=== PATIENT | female | born 1965 | race Caucasian/White ===

== ENCOUNTER → 2018-01-07 10:29 | Outpatient (CLI) | payer OTHER, SELFPAY ==
[2018-01-07 12:11] LABS: Add Manual Diff / Slide Review NO; Basophils Percent Auto 0.3 % (0-2); Hematocrit 40.9 % (36-46); Hemoglobin 13.8 g/dL (12.0-16.0); Lymphocytes Percent Auto 29.4 % (25-40); Mean Corpuscular HGB Conc 33.7 % (30-36); Monocytes Percent Auto 7.7 % (3-14); Neutrophils Absolute Auto 3300 /uL (3000-5900); Neutrophils Percent Auto 61.6 % (50-75); Platelet Count 219 X10^3/uL (150-400); Red Blood Cell Count 4.75 X10^6/uL (4.0-5.2); Red Cell Distribution Width 13.3 % (11.6-14.8); White Blood Cell Count 5.3 X10^3/uL (4.5-11.0)
[2018-01-07 12:19] LABS: Carbon Dioxide 24 mmol/L (22-32); Chloride 104 mmol/L (98-107); HEMOLYSIS < 15 (0-50); Potassium 4.1 mmol/L (3.4-5.1); Sodium 143 mmol/L (137-145)
== END ==
PROVIDERS: PCP Family Medicine; Visit Provider Orthopaedic Surgery
DX: Z01.812 Encounter for preprocedural laboratory examination (principal); M16.12 Unilateral primary osteoarthritis, left hip; Z01.818 Encounter for other preprocedural examination
CPT/HCPCS: 36415; 80051; 85025; 93005; 93010

== ENCOUNTER 2018-01-30 06:17 | Inpatient (IN) | payer OTHER, SELFPAY ==
[2018-01-16 09:55] VITALS: BMI 29.7
[2018-01-30] VITALS (11 sets, daily range): BP systolic 86–121; BP diastolic 49–82; PULSE 60–115; RESP 11–17; TEMP 36.3–36.9; O2SAT 95–100; BMI 29.9
--- NOTE | 2018-01-30 06:00 | DI.RAD.S_ITS ---
PROCEDURE: XR PELVIS 1-2V INDICATIONS: postop TECHNIQUE: 1 view of the lower pelvis acquired. COMPARISON: None. FINDINGS: Bones: Patient is status post left hip arthroplasty, with hardware components in expected positions. The hip joint appears congruent. The visualized bony structures appear intact. Soft tissues: Overlying postoperative changes are noted. No suspicious soft tissue densities. IMPRESSION: Normal postoperative examination. Dictated by: Phi Otoole M.D. on 01/30/2018 at 9:44 Approved by: Phi Otoole M.D. on 01/30/2018 at 9:45
[2018-01-30] MEDS: LACTATED RINGERS 1,000 ML 42 ML IV (07:05)
[2018-01-30] MEDS: PREGABALIN 75 MG CAPSULE PO (07:06)
[2018-01-30] MEDS: ACETAMINOPHEN 325 MG TABLET 975 MG PO (07:06)
[2018-01-30] MEDS: CELECOXIB 200 MG CAPSULE PO (07:06)
--- NOTE | 2018-01-30 08:05 | SUR.PREOP ---
Spoke with Dr. Hdz regarding pt adverse reaction to amoxicillin in relation to current order for ancef. Per Dr. Hdz, ok to continue with current plan for ancef. Communicated this with circulating RN.
--- NOTE | 2018-01-30 08:13 | PM.PREOP ---
Pre-operative Note Interval Note Pre-op Check: Yes History & Physical Reviewed by Physician Changes: No
[2018-01-30] MEDS: CEFAZOLIN 1 GM VIAL IV (08:15)
[2018-01-30] MEDS: TRANEXAMIC ACID 1,000 MG VIAL 1000 MG INJ ×2 (08:27→09:40)
--- NOTE | 2018-01-30 08:40 | SUR.OPER ---
Lateral on padded OR bed. Gel axillary roll. Arms secured on padded armboard with pillow supporting top arm. Padded hip positioner braces x4 - anterior and posterior chest and pelvis. Additional gel pad used anterior pelvis. Gel pad under bottom leg from knee to foot and secured with tape over sheet.
[2018-01-30] MEDS: BUPIVACAINE 0.25% W/ EPI VIAL 50 ML INJ (08:50)
--- NOTE | 2018-01-30 10:17 | PM.OP.1 ---
Operative Date/Time/Diagnoses Date of procedure: 01/30/18 Time of procedure: 10:17 Procedure & Clinicians Procedure: Left total hip arthroplasty (CPT code 79908 with special education educational assistant) Indications: Patient is an 52-year-old female with severe left hip DJD. The patient has pain with activities and at rest, limited ambulation and activity tolerance, difficulties with ADLs, and failure of conservative treatment. We have discussed the nature of condition, treatment options, risks and benefits, and patient elects to proceed with total hip arthroplasty and gives informed consent. Surgeon: Sharad Hdz Knuckle Bender: Elvira Moss Anesthesia Type: General and Spinal Operative Notes Closure Type: primary Specimen(s): none sent Implants & Drains: Acetabulum: Velázquez and Nephew R3 acetabular component size 50 mm Femoral component: Velázquez [employer] Nephew Synergy stem size 11 with high offset Femoral head: 32 mm + 0 Oxinium Estimated Blood Loss (mL): 100 Blood products transfused: none Procedure in detail: After satisfaction induction of anesthetic, and administration of IV antibiotics, the patient was positioned in the lateral decubitus position with all bony prominences well padded and pelvic position secured using a hip tax professional positioning device. Left hip and lower extremity prepped and draped in the usual sterile fashion, 1st dose of intravenous tranexamic acid was administered, then a longitudinal incision was created centered over the greater trochanter and carried sharply through the skin and subcutaneous tissues down to the fascia brandi which was divided longitudinally and retracted with a Charnley retractor. External rotators visualize, cut, tagged, and retracted posteriorly, then the capsule was cut in a T-type fashion with the corners tagged and retracted. Hip was dislocated and femoral neck cut made according to preoperative templating. Acetabular retractors then placed, and the acetabular labrum and osteophytes were excised. The acetabulum was then sequentially reamed to 49 mm with an excellent circumferential ream and fit with the trial. The trial component was removed and a permanent size 50 mm Velázquez and Nephew R3 acetabular component was selected, positioned, and impacted with satisfactory position and fixation achieved. Permanent liner was then inserted with the elevated lip directed posteriorly. Soft tissue then removed off the lateral femoral neck in the lateral neck was entered using a box osteotome. T-handled reamers placed down the canal followed by sequential broaching to 11 with the final broach left in place for trial reduction which demonstrated good leg length, range of motion, and stability characteristics with a 32 mm +0 trial ball. Another trial reduction was performed with a high offset neck trial with marked improvement and stability, so the trial and broach were removed, and a permanent size 11 high offset Velázquez [employer] Nephew Synergy stem was selected and inserted with excellent position and fixation achieved. Another trial reduction yielded the above characteristics so the trial ball was exchanged for a permanent 32 mm +0 Oxinium ball. The hip was irrigated and reduced and excellent leg length range of motion and stability characteristics were achieved and maintained. The hip was copiously irrigated, and the capsule repaired with #2 Ethibond, and the piriformis was repaired back to the greater trochanter with the same. Fascia brandi closed with interrupted #1 Ethibond sutures, and the subcutaneous tissues were closed in 2 layers of 0 Vicryl and 2 0 Vicryl. Skin was closed with hue and sterile dressings applied. Second dose of tranexamic acid was administered intravenously, and the anesthetic was terminated. Complications: none Condition: stable Disposition: PACU Plan for aftercare: Patient will be admitted to the acute care van, and anticipate discharge on postop day 1 or 2 with follow-up in office in 10-14 days. Outpatient physical therapy will be arranged and patient will continue to observe posterior hip precautions. Patient will continue use of postoperative Lovenox for 10 days postop.
--- NOTE | 2018-01-30 10:21 | P.OP_ITS ---
Operative Date/Time/Diagnoses Date of procedure: 01/30/18 Time of procedure: 10:17 Procedure & Clinicians Procedure: Left total hip arthroplasty (CPT code 61528 with timber management assistant) Indications: Patient is an 52-year-old female with severe left hip DJD. The patient has pain with activities and at rest, limited ambulation and activity tolerance, difficulties with ADLs, and failure of conservative treatment. We have discussed the nature of condition, treatment options, risks and benefits, and patient elects to proceed with total hip arthroplasty and gives informed consent. Surgeon: Sharad Hdz Party Plan Selling Distributor: Elvira Moss Anesthesia Type: General and Spinal Operative Notes Closure Type: primary Specimen(s): none sent Implants & Drains: Acetabulum: Velázquez [employer] Nephew R3 acetabular component size 50 mm Femoral component: Velázquez [employer] Nephew Synergy stem size 11 with high offset Femoral head: 32 mm + 0 Oxinium Estimated Blood Loss (mL): 100 Blood products transfused: none Procedure in detail: After satisfaction induction of anesthetic, and administration of IV antibiotics, the patient was positioned in the lateral decubitus position with all bony prominences well padded and pelvic position secured using a hip flange machine operator positioning device. Left hip and lower extremity prepped and draped in the usual sterile fashion, 1st dose of intravenous tranexamic acid was administered, then a longitudinal incision was created centered over the greater trochanter and carried sharply through the skin and subcutaneous tissues down to the fascia brandi which was divided longitudinally and retracted with a Charnley retractor. External rotators visualize, cut, tagged, and retracted posteriorly, then the capsule was cut in a T-type fashion with the corners tagged and retracted. Hip was dislocated and femoral neck cut made according to preoperative templating. Acetabular retractors then placed, and the acetabular labrum and osteophytes were excised. The acetabulum was then sequentially reamed to 49 mm with an excellent circumferential ream and fit with the trial. The trial component was removed and a permanent size 50 mm Velázquez and Nephew R3 acetabular component was selected, positioned, and impacted with satisfactory position and fixation achieved. Permanent liner was then inserted with the elevated lip directed posteriorly. Soft tissue then removed off the lateral femoral neck in the lateral neck was entered using a box osteotome. T-handled reamers placed down the canal followed by sequential broaching to 11 with the final broach left in place for trial reduction which demonstrated good leg length, range of motion, and stability characteristics with a 32 mm +0 trial ball. Another trial reduction was performed with a high offset neck trial with marked improvement and stability, so the trial and broach were removed, and a permanent size 11 high offset Velázquez and Nephew Synergy stem was selected and inserted with excellent position and fixation achieved. Another trial reduction yielded the above characteristics so the trial ball was exchanged for a permanent 32 mm +0 Oxinium ball. The hip was irrigated and reduced and excellent leg length range of motion and stability characteristics were achieved and maintained. The hip was copiously irrigated , and the capsule repaired with #2 Ethibond, and the piriformis was repaired back to the greater trochanter with the same. Fascia brandi closed with interrupted #1 Ethibond sutures, and the subcutaneous tissues were closed in 2 layers of 0 Vicryl and 2 0 Vicryl. Skin was closed with hue and sterile dressings applied. Second dose of tranexamic acid was administered intravenously , and the anesthetic was terminated. Complications: none Condition: stable Disposition: PACU Plan for aftercare: Patient will be admitted to the acute care van, and anticipate discharge on postop day 1 or 2 with follow-up in office in 10-14 days. Outpatient physical therapy will be arranged and patient will continue to observe posterior hip precautions. Patient will continue use of postoperative Lovenox for 10 days postop.
--- NOTE | 2018-01-30 10:44 | SUR.PHASEI ---
pt transfered up to room 224 on room air and left in stable condition under the care of lindsay.
--- NOTE | 2018-01-30 13:51 | CM.DANOTE ---
Patient is a 52 year old female who was admitted on 01/30/18 today for Left Total Hip. Pt has PRE DIM for insurance and her PCP is Dr. Morales. EMR was reviewed. Per Surgeon, pt tolerated procedure well and ordered PT eval. SW met bedside with pt shortly after arriving on the floor from surgery and explained role and pt confirmed that she lives in [place] with her and 17 year old daughter and is typically Independent at baseline. Pt drives and denies any hx of HH or SNF. Pt confirms that she has outpt PT set up with [place] set up for Tuesday and preference is home with family and friend support. Pt's spouse has the week off from work to provide assist. Plan: SW to follow for PT/OT eval and recommendations to confirm pt will be safe for d/c home with family and outpt PT set up in [place]. SUBHA Webb Discharge Planning/Care Management CM Discharge Assessment Start: 01/30/18 13:49 Freq: Status: Active Protocol: Document 01/30/18 13:49 BF (Rec: 01/30/18 13:51 [id number]) Discharge Planning Assessment Assigned State Archivist SUBHA Mtz Advance Directives? No Advance Directives on File No History Provided By Patient Medical Record Has Patient been admitted in last 30 No days? Prior Living Arrangements House Household Members spouse children Comment Patient lives at home with spouse and 17 year old Dtr in [place]. Type of transporation used prior to Drives own vehicle admit Independent with ADL's Yes Is patient alert and oriented? Yes Caregiver for Another Yes: 17 year old Dtr Community Services used prior to Physical Therapy admission: Comment Plan is home, waiting for PT/ OT eval and recommendations Barriers to Discharge No Discharge Plan Home Community Services Physical Therapy Transportation Arrangement Spouse taking the week off and can provide transport at d/c. Whiteboard Updated in Patient Room with Yes name and ext. # of State Archivist Review Status In Process Please Provide Date Initial DC 01/30/18 Assessment Was Performed Next Review Type Continued Stay Review Pre-Anesthesia Assessment Start: 01/16/18 09:55 Freq: Status: Active Protocol: Document 01/16/18 09:55 CAB (Rec: 01/16/18 10:38 CAB [id number]) Pre-Anesthesia Assessment Patient Also Known As (KESHA Butler Patient Information Reviewed Via Phone Assessment Assessment Completed With Patient Primary Care Provider Swati Morales Seen Specialist in Last 12 Months Yes Specialist Seen Hide Or Skin Buffer Orthopedist Primary Language Polish Overhead Worker Required No Height 155.58 cm Weight 72.121 kg Body Mass Index (BMI) 29.7 Hearing Ability Normal Visual Assist Glasses Dentition Type Teeth, Natural Present Barriers to Learning None Hx Anesthesia Reactions Yes: Vomiting w/GA after wisdom teeth Hx Family Anesthesia Reaction No Hx Malignant Hyperthermia No Hx Blood Transfusions No Anesthesia Review Requested No Social Security Benefits Interviewer No alcohol intake current alcohol intake frequency a few times a week Smoking Status Never smoker Substance Use Type does not use Pain Present Pain Reported Musculoskeletal Symptoms Abnormal Gait Difficulty Walking Joint Pain History of Falling (Recent or History of No ) Patient is completely paralyzed or No completely immobile Mental Status Oriented to own ability Comment Walking sticks with prolonged walking/hiking Is patient on oxygen? No Does patient have ANDREWS/SOB No Hx Sleep Apnea No Suspected Sleep Apnea No Currently Taking a Beta Mauricio No Can You Climb a Flight of Stairs Without Yes SOB Hx Chest Pain No Hx SOB No Hx Syncope or Dizziness No Anti-Coagulant Therapy No Has a Space And Missile Operations Spacelift No Cardiac Testing No Hx Pacemaker/ICD No Pacemaker Rep Required? No Cardiac Clearance Received Not Applicable Diet Type At Home Regular dysphagia No Bladder Pattern Incontinent, Stress Urinary Catheter Present No Hx Urinary Self Catheterization No Diabetes No Patient No Lactating No Hx Drug Resistant Organism No Presence of External or Internal Medical No Devices Have you traveled outside the [facility] States in the last 30 days? Marital Status Lives With spouse children Prior Living Arrangements House Number of Floors (Floors) 3 or More Floors Number of Stairs To Enter/Railing? 5 stairs, railing present Support System Child/Children Spouse Does the Patient Have Assistance After Yes Surgery Patient Discharge Plan Description Return Home Comment Pt advised 1 night length of stay per surgeon's office Feels Safe in Current Environment Yes Been Physically Hurt or Threatened By a No Person in Current Environment Do you have thoughts of harming yourself None or others? Are you currently considering suicide? No Do you have a plan to hurt yourself or No Plan others? Do You Have Any Spiritual Beliefs That No May Affect Your HC Choices? Do You Have Any Cultural Practices That No May Affect Your HC Choices? Spiritual Referral In-House Head Kiln Operator Comment Amrik Who Can We Speak to About Patient's Care Family, friends Identifying Code for Release of Patient Declines to issue Information Health Care Proxy/Next of Kin Noel () Health Care Proxy Emergency Contact Name Noel () Emergency Contact Advance Directives? No: Has paperwork at home Advance Directives on File No Requested Patient Bring Advanced Yes Directives DOS Power of Creel Hand No PAC Instructions Durable medical equipment Medications to take/avoid Nasal antibiotic No ETOH/petroleum product on skin DOS NPO Post-op transportation Pre-surgical wash Sturdy shoes/comfortable clothes Do not bring valuables and remove jewelry
[2018-01-30] MEDS: LACTATED RINGERS 1,000 ML 125 ML IV ×2 (14:11→23:39)
[2018-01-30] MEDS: ONDANSETRON 4 MG ODT PO (14:13)
--- NOTE | 2018-01-30 15:12 | PT.IIE ---
Addendum entered and electronically signed by Kaylyn Byrd, PT 01/31/18 08:49: I certify I directly supervised and guided this session. R Rupal Byrd DPSharron Original Note: Current Diagnoses Unilateral primary osteoarthritis, left hip (01/30/18) Surgery Performed Operation Date: 01/30/18 07:45 Actual Procedures p Total Hip Arthroplasty(Left) - Sharad Hdz MD Surgical History (Last Updated 01/16/18 @ 10:19 by Marlena Ibarra RN) Hx of left breast biopsy (Acute ~2003) Hx of oral surgery (Acute) Medical History (Last Updated 01/16/18 @ 10:19 by Marlena Ibarra RN) Eczema (Acute) HTN in , chronic (Acute) Mild depression (Acute ~2003) Mild intermittent asthma (Acute) Osteoarthritis (Acute) Physical Therapy Inpatient Evaluation/Re-Eval M1 PT/OT-IP Prior Functional Status Start: 01/30/18 16:22 Freq: NEEDED Status: Active Protocol: Document 01/30/18 15:12 (Rec: 01/30/18 16:40 [id number]) Medical Review Prior Functional Status Medical History Reviewed Yes Communication No deficits noted Mobility and Gait Pt previously ambulating mod I she uses trekking poles for hiking or occasionally longer distances, for example [employer] shopping. All other mobilties are stated as independent using no AD including driving and self care. Social History Household Members spouse children Living Arrangements House Number of Floors (Floors) Two Floors Number of Stairs To Enter/Railing? 5 to enter, L rail. She is set up to live on the first floor post-op until beginning OP PT. avaliable to assist 24/7 for the next wk. Home Environment Standard Height Toilet Walk in Shower Home Equipment Front Wheel Walker Shower Seat without Backrest Hand Held Shower Employment Status Commuter Pilot Employed Additional Social History Comment Pt scheduled to return to work on March 20, 2018. Pt also owns a Brenner bed ( can transition to standing). M2 PT-IP Current Condition Start: 01/30/18 16:22 Freq: NEEDED Status: Active Protocol: Document 01/30/18 15:12 (Rec: 01/30/18 16:40 [id number]) Physical Therapy Current Condition Current Condition Evaluation Date 01/30/18 Treatment Diagnosis L MINNIE; difficulty walking Onset Date 01/30/2018 Precautions Posterior Hip Precautions No Hip Flexion > 90 degrees No Hip Internal Rotation No Hip Adduction Weight Bearing Status Weight Bearing Status Weight Bear as Tolerated M3 PT-IP Subjective Start: 01/30/18 16:22 Freq: NEEDED Status: Active Protocol: Document 01/30/18 15:12 (Rec: 01/30/18 16:40 [id number]) Subjective Physical Therapy Visit Type Type Initial Evaluation Visit Start Time 03:12 Visit Stop Time 03:50 Total Visit Minutes 38 Number of JOB HONER Visits 0 Physical Therapy Visit Comments Patient Comments Pt agreeable to mobilize with PT Patient Goals planning to d/c home with 04/10 assist. Therapy Pain Assessment Pain When Pain Assessed During Mobility Pain Present Pain Present Denied Pain M4 PT-IP Mobility and Gait Start: 01/30/18 16:22 Freq: NEEDED Status: Active Protocol: Document 01/30/18 15:12 (Rec: 01/30/18 16:40 [id number]) PT-Bed Mobility Assessment Supine to Sit Supine to Sit Standby Assistance Sit to Supine Sit to Supine Minimal Assistance Scooting Scooting to Edge of Bed Standby Assistance PT-Transfer Assessment Sit to and From Stand Sit to and from Stand Moderate Assistance 1 Person Assistance Use of Upper Extremities Equipment Transfer Assistive Device Gait Belt Front Wheeled Walker Transfers Transfer Destination Chair Transfer Technique Stand Step Pivot Transfer Ability Level of Assist Moderate Assistance 1 Person Assistance Use of Upper Extremities Comments Mobility Comments BP 74/38 supine resting. Waited 5 mins. pt cued to breath BP 129/62 HR 78. O2 sat 98% on room air. Supine < > sitting pt is SBA with min cues. Seated BP 135/96 HR 111 . Pt instructed to rest with cues for deep breathing. Pt ( +) for emesis in sitting. 5 mins. resting in seated pt stating feeling better and wanting to continue. BP 108/ 74 HR 100. Sit <> stand with fww is mod Ax1 for steadying with min cues. Standing BP 121/82 HR 79. Pt transfers to recliner with fww and mod A for steadying pt, bloking LLE and mod cues. BP 101/73 HR 79 . Nursing notified of pt emesis and BP readings. Pt left with nursing. PT-Balance Assessment Sitting Balance and Reactions Static Sitting Balance Ability Good Dynamic Sitting Balance Ability Good Standing Balance and Reactions Static Standing Balance Ability Fair Dynamic Standing Balance Ability Poor Device Used fww M5 PT-IP Objective Assessments Start: 01/30/18 16:22 Freq: NEEDED Status: Active Protocol: Document 01/30/18 15:12 (Rec: 01/30/18 16:40 [id number]) Orientation Orientation/Cognition Level of Alertness Alert Orientation Name Age Birthday Month Date Year Day of Week Place Situation Language Function Ability No Deficits Noted Safety Awareness Decreased Safety Awareness Memory Description No Deficits Noted Gross Range of Motion Lower Extremity ROM Assessment Left Impaired Impairments limited per precuations. Not formally tested. Strength Lower Extremity Strength Assessment Left Impaired Hip 3 Knee 3 Ankle 5 Comments Strength Comments LLE WNL Sensation Assessment Sensation Light Touch Impaired Sensation Description Heaviness Comments Sensation Comments Light touch impaired over L thigh and L knee. Intact over L foot dorsum and plantar surface M6 PT-IP Treatment Start: 01/30/18 16:22 Freq: NEEDED Status: Active Protocol: Document 01/30/18 15:12 (Rec: 01/30/18 16:40 [id number]) Physical Therapy Treatment Exercises Exercises Ankle Pumps Gluteal Sets Quad Sets Heel Slides Education Education Provided Precautions Weight Bearing Status Post-Op Packet Safety M7 PT-IP Assessment and Plan Start: 01/30/18 16:22 Freq: NEEDED Status: Active Protocol: Document 01/30/18 15:12 (Rec: 01/30/18 16:40 [id number]) PT Summary Assessment and Plan Potential Rehabilitation Potential Good Status of Condition at Evaluation Evolving Summary Impairments ROM Strength Balance Coordination Cognition Bed Mobility Transfers Gait Activity Tolerance Assessment Summary Pt s/p L MINNIE with difficulty walking. Patient was able to transfer with fww and modAx1 using [id number]. She was (+) for emesis and low blood pressures. At this time the pt is not safe to d/c home due to significantly impaired mobility. Pt mobilities are likely to improve and I anticipate safe d/c to home with 04/10 assist and OP PT. Goals Bed Mobility Goal Independent Transfer Goal Standby Assistance Front Wheeled Walker Gait Goal Standby Assistance Front Wheel Walker Gait Distance 150 Other Goals up/down 5 steps L rail CGA Frequency of Treatment Frequency Of Treatment Twice a Day Treatment Plan Physical Therapy Treatment Plan Bed Mobility Training Transfer Training Gait Training Therapeutic Exercise Balance Retraining Post Op Education Discharge Planning Hot or Cold Pack Neuromuscular Re-ed Coordination Retraining Manual Therapy Other Recommendations and Next Treatment Progress ambulation and stair Focus climbing as appropriate. Recommendations To Nursing Amount of Assist Needed 2 Person Assist Discharge Recommendations PT Discharge Recommendations Home with 24/ Assist Outpatient PT
[2018-01-30] MEDS: METOCLOPRAMIDE 10 MG/2 ML INJ IV (15:50)
[2018-01-30] MEDS: CEFAZOLIN 2 GM/100 ML FROZ.PIGGY IV ×2 (15:55→23:39)
[2018-01-30] MEDS: LORazepam 2 MG/ML SYRINGE 0.5 MG IV (17:56)
[2018-01-30] MEDS: ONDANSETRON 4 MG/2 ML INJ IV (21:47)
--- NOTE | 2018-01-30 23:24 | PC.NURSE ---
01/30 2324; pt alert and oriented, vss on ra while awake, desaturates while asleep, placed on 2L NC. CMS intact to operative leg. Since beginning of shift pt has had about 8 episodes of emesis, denies presence of nausea, vomitting occurs very spontaneously sometimes after sips of water other times with movement. Multiple PRNs administered with minimal effect. Pt unable to empty bladder, up two times with encouragement and voided some (hat did not capture) post void residuals around 250ml both times. At this point urinary catheter not warranted. Clear liquids only this shift due to GI disturbances.
[2018-01-31] VITALS: O2SAT 98
[2018-01-31 00:02] VITALS: BP 121/74; PULSE 94; RESP 16; TEMP 36.6; O2SAT 99
[2018-01-31] MEDS: ACETAMINOPHEN 325 MG TABLET 975 MG PO ×3 (00:02→14:40)
[2018-01-31 06:02] LABS: Hematocrit 30.7 % (36-46); Hemoglobin 10.2 g/dL (12.0-16.0)
[2018-01-31] MEDS: IBUPROFEN 400 MG TABLET PO (06:12)
[2018-01-31 06:34] VITALS: BP 119/87; PULSE 85; RESP 16; TEMP 36.6; O2SAT 99
[2018-01-31 07:00] VITALS: BP 95/60; PULSE 79; RESP 18; TEMP 36.9; O2SAT 97
[2018-01-31 08:06] VITALS: O2SAT 98; O2SAT 99
--- NOTE | 2018-01-31 09:00 | PM.DS.1 ---
History of Present Illness Date Patient Seen: 01/31/18 Time Patient Seen: 09:00 Chief complaint: total hip replacement left [id number] Narrative: Patient's pain is been 1 of 3. Patient did have some nausea vomiting yesterday evening and last night. She states the nausea has improved and was able to have some breakfast. She has only been taking ibuprofen and Tylenol as needed for pain. She has gotten up to use the bathroom a couple times with assistance. She does have family at home to assist her. Patient would like to go home today if safe to do so. Discharge Providers Date of admission: 01/30/18 06:17 Primary care physician: Swati Morales MD Consults: 01/30/18 10:52 Consult to Discharge Planning Routine Comment: Consult to Physical Therapy Evaluate & Treat Comment: Physician Instructions: post op MINNIE protocol Consult to Respiratory Therapy Evaluate & Treat Comment: Physician Instructions: Evaluate and treat 01/30/18 14:01 Consult to Pastoral Services Routine Comment: per pt request Discharge provider: Chino Heredia PA-C Discharge Date: 01/31/18 Summary Discharge Diagnosis: Status post left total hip arthroplasty Hospital Course: 52-year-old female who failed treatment as outpatient for severe left hip DJD. Patient admitted to the hospital and consented for left total hip arthroplasty. Patient taken to the operating room underwent left total hip arthroplasty. Anesthesia was general and spinal. Estimated blood loss 100 cc. Patient back in her room recovering well and is in stable condition. Status at Discharge Functional status at discharge: uses cane/walker Overall status at discharge: patient is progressing back to baseline Time Spent with Patient Less than 30 minutes Exam Vital Signs (past 8 hours): - 01/31/18 06:34 01/31/18 07:00 01/31/18 08:06 Temperature 97.8 F 98.4 F Pulse Rate 85 79 Respiratory Rate 16 18 Blood Pressure 119/87 95/60 Pulse Oximetry 99 97 98 Oxygen Delivery Method Room Air Oxygen Flow Rate 1 Narrative Exam Narrative: 52-year-old female resting comfortably in bed in no apparent distress. Left hip dressing is clean, dry and intact. Neurovascular status is intact to the distal left lower extremity. Objective Labs Result Diagrams: 01/31/18 05:39 Labs: Laboratory Results - last 24 hr 01/31/18 05:39 Hgb 10.2 L Hct 30.7 L Discharge Plan Discharge Plan Patient Disposition: Home Discharge comment: DC home today after PT Discharge Med Rec/Prescriptions Prescriptions: New enoxaparin [Lovenox] 40 mg/0.4 mL Syringe 40 mg subcut DAILY Qty: 9 RF: 0 ondansetron 8 mg tablet,disintegrating 4 mg PO Q4HR PRN (Reason: Nausea) Qty: 30 RF: 1 oxycodone 5 mg tablet 5 mg PO Q4-6H PRN (Reason: pain) Qty: 30 RF: 0 Continue fluocinonide 0.05 % Ointment 1 applic TOPICAL BID PRN (Reason: eczema) RF: 0 desonide 0.05 % Ointment 1 applic TOPICAL BID PRN (Reason: eczema) RF: 0 clobetasol 0.05 % Ointment 1 applic TOPICAL BID PRN (Reason: eczema) RF: 0 albuterol sulfate 90 mcg/actuation Hfa Aerosol Inhaler 2 puff INHALATION Q4-6H PRN (Reason: Asthma) RF: 0 fluticasone [Flovent HFA] 110 mcg/actuation Hfa Aerosol Inhaler 2 puff INHALATION BID PRN (Reason: Asthma) RF: 0 fexofenadine [Almita Allergy] 180 mg Tablet 180 mg PO DAILY RF: 0 omega 1-bqe-ksg-fish oil [Fish Oil] 1,000 mg (120 mg-180 mg) Capsule 1 tab PO DAILY RF: 0 Discontinued ibuprofen 200 mg Tablet 400 mg PO DAILY PRN (Reason: pain) RF: 0 Follow up/Referrals: Swati Morales MD [Primary Care Provider] - Sharad Hdz MD [Physician] - 1 Week Provider Discharge Instructions Diet: Diet as Tolerated Activity: Weightbearing as tolerated, posterior hip precautions Cold/Heat Therapy: Ice to affected hip as needed Other treatments: Tylenol 1000 mg 3 times daily, Mobic 1 tab daily, Lovenox 1 injection daily and then start 81 mg aspirin twice daily after completing course of Lovenox, oxycodone half tablet-1 tablet Q 4-6 hours as needed for pain, Vistaril as needed muscle spasms and pain, Zofran 8 mg PO every 8 hours as needed nausea Chino Heredia PA-C [phone] Skin/Wound/Dressing Care Report to your healthcare provider any signs of infection, such as:: chills, fever, increased pain and unusual drainage Visit Report/Discharge Packet Visit Report Forms: Stroke Signs & Symptoms Discharge Data Primary Care Provider: Swati Morales Attending Provider: Sharad Hdz Admit Date/Time: 01/30/18 06:17 Quality VTE Deep Vein Thrombosis/Pulmonary Embolism Present on Admission: No
--- NOTE | 2018-01-31 09:03 | P.DS_ITS ---
History of Present Illness Date Patient Seen: 01/31/18 Time Patient Seen: 09:00 Chief complaint: total hip replacement left [id number] Narrative: Patient's pain is been 1 of 3. Patient did have some nausea vomiting yesterday evening and last night. She states the nausea has improved and was able to have some breakfast. She has only been taking ibuprofen and Tylenol as needed for pain. She has gotten up to use the bathroom a couple times with assistance. She does have family at home to assist her. Patient would like to go home today if safe to do so. Discharge Providers Date of admission: 01/30/18 06:17 Primary care physician: Swati Morales MD Consults: 01/30/18 10:52 Consult to Discharge Planning Routine Comment: Consult to Physical Therapy Evaluate & Treat Comment: Physician Instructions: post op MINNIE protocol Consult to Respiratory Therapy Evaluate & Treat Comment: Physician Instructions: Evaluate and treat 01/30/18 14:01 Consult to Pastoral Services Routine Comment: per pt request Discharge provider: Chino Heredia PA-C Discharge Date: 01/31/18 Summary Discharge Diagnosis: Status post left total hip arthroplasty Hospital Course: 52-year-old female who failed treatment as outpatient for severe left hip DJD. Patient admitted to the hospital and consented for left total hip arthroplasty. Patient taken to the operating room underwent left total hip arthroplasty. Anesthesia was general and spinal. Estimated blood loss 100 cc. Patient back in her room recovering well and is in stable condition. Status at Discharge Functional status at discharge: uses cane/walker Overall status at discharge: patient is progressing back to baseline Time Spent with Patient Less than 30 minutes Exam Vital Signs (past 8 hours): - 01/31/18 06:34 01/31/18 07:00 01/31/18 08:06 Temperature 97.8 F 98.4 F Pulse Rate 85 79 Respiratory Rate 16 18 Blood Pressure 119/87 95/60 Pulse Oximetry 99 97 98 Oxygen Delivery Method Room Air Oxygen Flow Rate 1 Narrative Exam Narrative: 52-year-old female resting comfortably in bed in no apparent distress. Left hip dressing is clean, dry and intact. Neurovascular status is intact to the distal left lower extremity. Objective Labs Result Diagrams: 01/31/18 05:39 Labs: Laboratory Results - last 24 hr 01/31/18 05:39 Hgb 10.2 L Hct 30.7 L Discharge Plan Discharge Plan Patient Disposition: Home Discharge comment: DC home today after PT Discharge Med Rec/Prescriptions Prescriptions: New enoxaparin [Lovenox] 40 mg/0.4 mL Syringe 40 mg subcut DAILY Qty: 9 RF: 0 ondansetron 8 mg tablet,disintegrating 4 mg PO Q4HR PRN (Reason: Nausea) Qty: 30 RF: 1 oxycodone 5 mg tablet 5 mg PO Q4-6H PRN (Reason: pain) Qty: 30 RF: 0 Continue fluocinonide 0.05 % Ointment 1 applic TOPICAL BID PRN (Reason: eczema) RF: 0 desonide 0.05 % Ointment 1 applic TOPICAL BID PRN (Reason: eczema) RF: 0 clobetasol 0.05 % Ointment 1 applic TOPICAL BID PRN (Reason: eczema) RF: 0 albuterol sulfate 90 mcg/actuation Hfa Aerosol Inhaler 2 puff INHALATION Q4-6H PRN (Reason: Asthma) RF: 0 fluticasone [Flovent HFA] 110 mcg/actuation Hfa Aerosol Inhaler 2 puff INHALATION BID PRN (Reason: Asthma) RF: 0 fexofenadine [Almita Allergy] 180 mg Tablet 180 mg PO DAILY RF: 0 omega 6-sqw-atg-fish oil [Fish Oil] 1,000 mg (120 mg-180 mg) Capsule 1 tab PO DAILY RF: 0 Discontinued ibuprofen 200 mg Tablet 400 mg PO DAILY PRN (Reason: pain) RF: 0 Follow up/Referrals: Swati Morales MD [Primary Care Provider] - Sharad Hdz MD [Physician] - 1 Week Provider Discharge Instructions Diet: Diet as Tolerated Activity: Weightbearing as tolerated, posterior hip precautions Cold/Heat Therapy: Ice to affected hip as needed Other treatments: Tylenol 1000 mg 3 times daily, Mobic 1 tab daily, Lovenox 1 injection daily and then start 81 mg aspirin twice daily after completing course of Lovenox, oxycodone half tablet-1 tablet Q 4-6 hours as needed for pain , Vistaril as needed muscle spasms and pain, Zofran 8 mg PO every 8 hours as needed nausea Chino Heredia PA-C [phone] Skin/Wound/Dressing Care Report to your healthcare provider any signs of infection, such as:: chills, fever, increased pain and unusual drainage Visit Report/Discharge Packet Visit Report Forms: Stroke Signs & Symptoms Discharge Data Primary Care Provider: Swati Morales Attending Provider: Sharad Hdz Admit Date/Time: 01/30/18 06:17 Quality VTE Deep Vein Thrombosis/Pulmonary Embolism Present on Admission: No
[2018-01-31] MEDS: ENOXAPARIN 40 MG/0.4 ML SYRINGE SUBCUT (10:03)
[2018-01-31] MEDS: DOCUSATE 100 MG CAPSULE PO (10:04)
[2018-01-31] MEDS: LORATADINE 10 MG TABLET PO (10:04)
--- NOTE | 2018-01-31 11:45 | PT.IPTN ---
Current Diagnoses Unilateral primary osteoarthritis, left hip (01/30/18) Surgery Performed Operation Date: 01/30/18 07:45 Actual Procedures p Total Hip Arthroplasty(Left) - Sharad Hdz MD Physical Therapy Treatment Note M2 PT-IP Current Condition Start: 01/30/18 16:22 Freq: NEEDED Status: Active Protocol: Document 01/30/18 15:12 (Rec: 01/30/18 16:40 [id number]) Physical Therapy Current Condition Current Condition Evaluation Date 01/30/18 Treatment Diagnosis L MINNIE; difficulty walking Onset Date 01/30/2018 Precautions Posterior Hip Precautions No Hip Flexion > 90 degrees No Hip Internal Rotation No Hip Adduction Weight Bearing Status Weight Bearing Status Weight Bear as Tolerated M3 PT-IP Subjective Start: 01/30/18 16:22 Freq: NEEDED Status: Active Protocol: Document 01/31/18 09:05 CLB (Rec: 01/31/18 11:45 CLB [id number]) Subjective Physical Therapy Visit Type Type Treatment Note Visit Start Time 09:05 Visit Stop Time 09:50 Total Visit Minutes 75 Notes In addition pt needed stair training but was running late. Stair training was performed at 10:30-11:15. Number of COUNSELING PSYCHOLOGIST Visits 1 Physical Therapy Visit Comments Patient Comments Pt willing to ambulate and do stair training. Patient Goals planning to d/c home with 04/10 assist. Therapy Pain Assessment Pain When Pain Assessed During Mobility Pain Present Pain Present Pain Reported Location Left Hip Intensity 3 Scale Used Numeric (1 - 10) Description Pulling Tender Pain Behaviors Wincing Pain Management Techniques Apply Cold Modification of Treatment Re-positioning Timing of Activity with Medications M4 PT-IP Mobility and Gait Start: 01/30/18 16:22 Freq: NEEDED Status: Active Protocol: Document 01/31/18 09:05 CLB (Rec: 01/31/18 11:45 CLB [id number]) PT-Bed Mobility Assessment Supine to Sit Supine to Sit Standby Assistance Scooting Scooting to Edge of Bed Standby Assistance PT-Transfer Assessment Sit to and From Stand Sit to and from Stand Contact Guard Assistance Use of Upper Extremities Equipment Transfer Assistive Device Gait Belt Front Wheeled Walker Transfers Transfer Destination Chair Toilet Wheelchair Transfer Technique Stand Step Pivot Transfer Ability Level of Assist Contact Guard Assistance 1 Person Assistance Use of Upper Extremities Comments Mobility Comments BP 99/65 in supine, 119/83 in sitting, 117/70 in standing. Pt was light headed in sitting that subsided within a minute . Pt needed cues for hand placement for safety getting up from chair. Pt BP in standing before trialing stairs 114/67 in standing. Gait Assessment Gait Gait Assistance Required: Standby Assistance Contact Guard Assist Distance (Feet) 125 Able to Maintain Weight Bearing Status Yes During Gait Assistive Devices Assistive Device Gait Belt Front Wheeled Walker Orthotic/Prosthetic Devices or Brace: No Gait Deviations General Gait Pattern Antalgic Decreased Stride Length Decreased Feet Clearance Step-to Gait Wide Based Gait Factors Limiting Gait Function Factors Limiting Gait Function Decreased Sensation Decreased Strength Pain Comments Gait Comments Pt able to ambulate ~125ft with cues for patricio and walker use as pt was lifting walker when making turns. Pt reported 3/10 pain with ambulation. Stair Climbing Assessment Evaluation Level of Assist On Stairs Contact Guard Assistance 1 Person Assistance Devices Stair Climbing Assistive Devices Left Railing Technique/Endurance Stair Climbing Direction Ascend and Descend Stair Climbing Technique Step to Step Number of Steps Climbed 5 Query Text: Stair Climbing Set # Repetitions (reps) 2 Comments Stair Climbing Comments After demonstration pt climbed three steps with CGA. Then pt climbed one platform step as pt had a platform step as one of the five steps to get into home. Pt performed all steps successfully with providing CGA and cues for foot sequencing. M5 PT-IP Objective Assessments Start: 01/30/18 16:22 Freq: NEEDED Status: Active Protocol: Document 01/30/18 15:12 (Rec: 01/30/18 16:40 [id number]) Orientation Orientation/Cognition Level of Alertness Alert Orientation Name Age Birthday Month Date Year Day of Week Place Situation Language Function Ability No Deficits Noted Safety Awareness Decreased Safety Awareness Memory Description No Deficits Noted Gross Range of Motion Lower Extremity ROM Assessment Left Impaired Impairments limited per precuations. Not formally tested. Strength Lower Extremity Strength Assessment Left Impaired Hip 3 Knee 3 Ankle 5 Comments Strength Comments LLE WNL Sensation Assessment Sensation Light Touch Impaired Sensation Description Heaviness Comments Sensation Comments Light touch impaired over L thigh and L knee. Intact over L foot dorsum and plantar surface M6 PT-IP Treatment Start: 01/30/18 16:22 Freq: NEEDED Status: Active Protocol: Document 01/31/18 09:05 CLB (Rec: 01/31/18 11:45 CLB [id number]) Physical Therapy Treatment Exercises Exercises Ankle Pumps Gluteal Sets Quad Sets Supine Hip Abduction Education Education Provided Precautions Weight Bearing Status Post-Op Packet Safety M7 PT-IP Assessment and Plan Start: 01/30/18 16:22 Freq: NEEDED Status: Active Protocol: Document 01/31/18 09:05 CLB (Rec: 01/31/18 11:45 CLB [id number]) PT Summary Assessment and Plan Potential Rehabilitation Potential Good Status of Condition at Evaluation Evolving Summary Impairments ROM Strength Balance Coordination Cognition Bed Mobility Transfers Gait Activity Tolerance Progress Towards Goals Progressing Toward Goals Assessment Summary Pt is SBA for bed mobility, SBA-CGA for transfers and gait . Pt successfully performed stair training with assisting. Pt recalled 3/3 precautions. Pt seems able to d/c home with assist when medically stable. Goals Bed Mobility Goal Independent Transfer Goal Standby Assistance Front Wheeled Walker Gait Goal Standby Assistance Front Wheel Walker Gait Distance 150 Other Goals up/down 5 steps L rail CGA Frequency of Treatment Frequency Of Treatment Twice a Day Treatment Plan Physical Therapy Treatment Plan Bed Mobility Training Transfer Training Gait Training Therapeutic Exercise Balance Retraining Post Op Education Discharge Planning Hot or Cold Pack Neuromuscular Re-ed Coordination Retraining Manual Therapy Recommendations To Nursing Amount of Assist Needed 1 Person Assist Discharge Recommendations PT Discharge Recommendations Home with 04/10 Assist Outpatient PT
--- NOTE | 2018-01-31 11:48 | CM.DPC ---
DCP/continued: Reviewed chart. Spoke with therapy and they report that patient plans to d/c home when medically stable. Patient cleared by therapy to return home. P: Home when stable. SUBHA Coates
[2018-01-31] MEDS: HYDROCODONE/ACET 5/325 TABLET 1 TAB PO (14:39)
== END 2018-01-31 14:40 | disposition home or self-care (01) | DRG 470 ==
PROVIDERS: Admitting Provider Orthopaedic Surgery; PCP Family Medicine; Visit Provider Orthopaedic Surgery
PROC: 0SRB0JZ Replacement of Left Hip Joint with Synthetic Substitute, Open Approach (ICD-10-PCS; CPT 27130; principal; 2018-01-30 07:45)
DX: M16.12 Unilateral primary osteoarthritis, left hip (principal); R11.2 Nausea with vomiting, unspecified; J45.909 Unspecified asthma, uncomplicated
CPT/HCPCS: 36415; 72170; 85014; 85018; 94760; 97110; 97116; 97162; 97530; C1776; J0690; J1100; J1650; J2060; J2250; J2274; J2405; J2704; J2765